=== PATIENT | female | born 1990 | race Caucasian/White ===

== ENCOUNTER → 2018-02-19 | Outpatient (CLI) | payer BC ==
--- NOTE | 2018-02-19 10:31 | US ---
EXAMINATION TYPE: US thyroid st tissue head/neck DATE OF EXAM: 02/19/2018 COMPARISON: NONE CLINICAL HISTORY: R53.83 other fatigue. GLAND SIZE: Right Lobe: 5.4 4.6 x 1.5 cm Overall Parenchyma: homogenous Left Lobe: 5.1 x 1.1 x 1.6 cm Overall Parenchyma: homogeneous Isthmus Thickness: 0.2 cm NODULES RIGHT: # of nodules measured on right: 1 1. 0.4 X 0.2 x 0.3 cm hypoechoic nodule at the lower pole with well-defined margins; . This nodule is wider than tall and shows no intranodular vascularity. Prior size: no previous LEFT: # of nodules measured on left: 0 ISTHMUS: # of nodules measured in the isthmus: 0 Bilateral neck scanned, no evidence of lymphadenopathy. Enlarged gland with one subcentimeter nodule on right lobe measuring 0.4 x 0.2 x 0.3 cm. IMPRESSION: 1. Subcentimeter nodule right lobe thyroid.
[2018-02-19 11:12] LABS: T4, Free (Free Thyroxine) 1.08 ng/dL (0.78-2.19)
[2018-02-19 18:09] LABS: ACTH 11.8 pg/mL (0.00-45.99)
== END | disposition home or self-care (01) ==
LOC: RADUSWWP 08:38
PROVIDERS: ATTEND Internal Medicine Endocrinology, Diabetes & Metabolism
DX: E04.1 Nontoxic single thyroid nodule (principal); R53.83 Other fatigue; E55.9 Vitamin D deficiency, unspecified
CPT/HCPCS: 76536; 82024; 82306; 82533; 82607; 84146; 84439; 84443; 84481